=== PATIENT | female | born 1995 | race Caucasian/White ===

== ENCOUNTER 2021-08-30 11:29 | Outpatient (CLI) | payer OTHER, SELFPAY | END 2021-08-30 11:30 | disposition home or self-care (01) | LOC: FRMREF 11:31 | PROVIDERS: Visit Provider Physician Assistant | DX: Z34.93 Encounter for supervision of normal pregnancy, unspecified, third trimester (principal) | CPT/HCPCS: 87086 ==

== ENCOUNTER 2021-10-10 10:17 | Outpatient (CLI) | payer OTHER, SELFPAY ==
[2021-10-10 14:28] LABS: TSH With Reflex to FT4* 0.016 uIU/mL (0.270-4.200)
[2021-10-11 08:31] LABS: Free T4 Free Thyroxine* 1.43 ng/dL (0.70-1.85)
== END 2021-10-10 10:18 | disposition home or self-care (01) ==
LOC: FRMREF 10:18
PROVIDERS: Visit Provider Registered Nurse
DX: E03.9 Hypothyroidism, unspecified (principal); D64.9 Anemia, unspecified; Z39.2 Encounter for routine postpartum follow-up
CPT/HCPCS: 84439; 84443; 85018

== ENCOUNTER 2022-01-01 15:24 | Outpatient (CLI) | payer OTHER, SELFPAY | END 2022-01-01 15:25 | disposition home or self-care (01) | PROVIDERS: Visit Provider Registered Nurse | DX: E03.9 Hypothyroidism, unspecified (principal) | CPT/HCPCS: 84443 ==

== ENCOUNTER 2022-04-16 16:01 | Outpatient (CLI) | payer OTHER, SELFPAY | END 2022-04-16 16:02 | disposition home or self-care (01) | PROVIDERS: Visit Provider Registered Nurse | DX: R10.2 Pelvic and perineal pain (principal); N89.8 Other specified noninflammatory disorders of vagina; N39.0 Urinary tract infection, site not specified | CPT/HCPCS: 87086; 87186 ==

== ENCOUNTER 2023-02-03 14:49 | Outpatient (CLI) | payer OTHER, SELFPAY ==
--- NOTE | 2023-02-03 15:00 | CRLHL7_ITS ---
For Patients: As a result of the Cures Act, medical imaging exams and procedure reports are released immediately into your electronic medical record. You may view this report before your referring provider. If you have questions, please contact your health care provider. INDICATION: First trimester scan, establish dates. COMPARISON: None. TECHNIQUE: Real-time ingram-scale imaging of the pelvis was performed. FINDINGS: Sonographic imaging demonstrates a single living intrauterine gestation. The embryo demonstrates a regular cardiac rate measuring 173 beats per minute. The embryo`s crown-rump length measurement of 2.2 cm corresponds to a gestational age of 8 weeks 6 days with a sonographic due date of 09/09/2023. There is a normal-appearing yolk sac. There are no gross abnormalities noted within the embryo at this early state of development. The gestational sac has a normal appearance. There is a 2.6 x 2.7 x 0.7 cm perigestational hemorrhage. The amount of fluid within the sac appears appropriate for gestational age. The cervix is closed. The myometrium appears normal. The ovaries are of normal size. There are no suspicious fluid collections noted in the cul-de-sac. IMPRESSION: Single living intrauterine with sonographic gestational age 8 weeks 6 days and sonographic due date 09/09/2023. Subchorionic hemorrhage measuring 2.6 x 2.7 x 0.7 cm. Dictated by Sher eRyes MD @ 02/05/2023 10:25:54 AM (Electronically Signed)
== END 2023-02-03 14:50 | disposition home or self-care (01) ==
LOC: US 14:49
PROVIDERS: Visit Provider Registered Nurse
DX: Z34.91 Encounter for supervision of normal pregnancy, unspecified, first trimester (principal); O20.9 Hemorrhage in early pregnancy, unspecified; Z3A.08 8 weeks gestation of pregnancy
CPT/HCPCS: 76817; 84439; 84443; 86592; 86703; 86704; 86706; 86762; 86787; 86803; 86850; 86900; 86901; 87086; 87186; 87340; 87491; 87591

== ENCOUNTER 2023-02-03 16:54 | Outpatient (CLI) | payer OTHER, SELFPAY | END 2023-02-03 16:55 | disposition home or self-care (01) | LOC: FRMREF 16:58 | PROVIDERS: Visit Provider Registered Nurse | DX: Z34.91 Encounter for supervision of normal pregnancy, unspecified, first trimester (principal) | CPT/HCPCS: 84439; 84443; 86592; 86703; 86704; 86706; 86762; 86787; 86803; 86850; 86900; 86901; 87086; 87186; 87340; 87491; 87591 ==

== ENCOUNTER 2023-03-31 15:29 | Outpatient (CLI) | payer OTHER, SELFPAY | END 2023-03-31 15:30 | disposition home or self-care (01) | LOC: NFLDREF 15:29 | PROVIDERS: Visit Provider Obstetrics & Gynecology | DX: E03.9 Hypothyroidism, unspecified (principal) | CPT/HCPCS: 84443 ==

== ENCOUNTER 2023-04-24 13:50 | Outpatient (CLI) | payer OTHER, SELFPAY ==
--- NOTE | 2023-04-24 14:00 | US_ITS ---
Patient: ANDREA LINO Facility:?[facility] Patient ID:?[id number] Site Patient ID:?[id number]. Site :?[id number] Study:?US-OB Pelvis OB ANATOMY-04/24/2023 2:57:32 PM Ordering Physician:?PREM ÁLVAREZ M.D. Final Report: INDICATION: survey. TECHNIQUE: Conventional transabdominal two-dimensional grayscale ultrasound examination. COMPARISON: None. FINDINGS: There is a living fetus with gestational age of 20 weeks 1 day LMP and 20 weeks 3 days by today`s measurements. EDC based on LMP is 09/10/2023. BPD: 4.7 cm, 20 weeks 1 day Head circumference: 17.9 cm, 20 weeks 3 days Abdominal circumference: 14.8 cm, 20 weeks 1 day Femur length: 3.3 cm, 20 weeks 2 days The weight is estimated at 340 grams, the 50th percentile. The heart rate is measured at 141 beats per minute and the rhythm appears regular. The head and spine are grossly intact. No gross facial abnormality is evident. The upper lip is intact. Four cardiac chambers are demonstrated. The heart and stomach appear to be on the same side. The diaphragm is intact. Two kidneys and a bladder are demonstrated. The cord insertion is normal and three cord vessels are noted. Four extremities are demonstrated. The amniotic fluid volume is within normal limits. The placenta is anterior with no evidence of previa. The cervical length is normal at 4.4 cm. IMPRESSION: 1. Living fetus with gestational age of 20 weeks 1 day LMP and 20 weeks 3 days by today`s measurements. EDC based on LMP is 09/10/2023. 2. No anomaly evident. Dictated by Ap Haynes MD @ 04/25/2023 6:29:24 AM Signed by:?Ap Haynes MD @04/25/2023 6:29:24 AM (Electronic Signature)
== END 2023-04-24 13:51 | disposition home or self-care (01) ==
LOC: US 13:51
PROVIDERS: Visit Provider Obstetrics & Gynecology
DX: Z34.92 Encounter for supervision of normal pregnancy, unspecified, second trimester (principal); Z3A.20 20 weeks gestation of pregnancy
CPT/HCPCS: 76805

== ENCOUNTER 2023-06-18 15:23 | Outpatient (CLI) | payer OTHER, SELFPAY | END 2023-06-18 15:24 | disposition home or self-care (01) | LOC: NFLDREF 06-19 07:52 | PROVIDERS: PCP Family Medicine; Visit Provider Registered Nurse | DX: E03.9 Hypothyroidism, unspecified (principal); Z34.93 Encounter for supervision of normal pregnancy, unspecified, third trimester | CPT/HCPCS: 84439; 84443; 86592 ==

== ENCOUNTER 2023-08-06 14:03 | Outpatient (CLI) | payer OTHER, SELFPAY | END 2023-08-06 14:04 | disposition home or self-care (01) | PROVIDERS: PCP Family Medicine; Visit Provider Registered Nurse | DX: Z34.93 Encounter for supervision of normal pregnancy, unspecified, third trimester (principal); R35.0 Frequency of micturition; Z13.0 Encounter for screening for diseases of the blood and blood-forming organs and certain disorders involving the immune mechanism; Z13.1 Encounter for screening for diabetes mellitus; Z13.29 Encounter for screening for other suspected endocrine disorder; Z3A.35 35 weeks gestation of pregnancy | CPT/HCPCS: 82947; 84443; 86618; 87086 ==

== ENCOUNTER 2023-08-14 14:10 | Outpatient (CLI) | payer OTHER, SELFPAY ==
[2023-08-15 18:10] LABS: Strep B DNA Probe Negative (Negative)
[2023-08-15 21:42] LABS: Strep B Susceptibility Needed? No
== END 2023-08-14 14:11 | disposition home or self-care (01) ==
PROVIDERS: PCP Family Medicine; Visit Provider Obstetrics & Gynecology
DX: Z34.93 Encounter for supervision of normal pregnancy, unspecified, third trimester (principal); Z3A.36 36 weeks gestation of pregnancy
CPT/HCPCS: 87081; 87086; 87653

== ENCOUNTER 2023-08-15 15:10 | Inpatient (IN) | payer OTHER, SELFPAY ==
[2023-08-15] VITALS (22 sets, daily range): BP systolic 110–132; BP diastolic 61–110; PULSE 57–74; RESP 15–17; TEMP 36.3–37; O2SAT 97–100; BMI 26.5
[2023-08-15] MEDS: PANTOPRAZOLE SODIUM 40 MG INJ IVP (14:12)
[2023-08-15] MEDS: LACTATED RINGERS 1000 ML 1,000 ML 999 ML IV (14:12)
[2023-08-15 14:56] LABS: Basophils Absolute Auto 0.01 K/uL (0.00-0.30); Basophils Percent Auto 0.1 % (0.0-3.0); Eosinophils Absolute Auto 0.07 K/uL (0.00-0.50); Eosinophils Percent Auto 0.9 % (0.0-7.0); Hematocrit 36.9 % (33.0-51.0); Hemoglobin* 12.8 gm/dL (12.0-16.0); Immature Granulocytes Abs Auto 0.09 K/uL (0.00-0.30); Immature Granulocytes Pct Auto 1.1 %; Lymphocytes Absolute Auto 2.71 K/uL (0.90-2.90); Lymphocytes Percent Auto 33.6 % (20-44); Mean Corpuscular HGB Conc 35 gm/dL (32-36); Mean Corpuscular Hemoglobin 33 pg (26-34); Mean Corpuscular Volume 95 fL (80-100); Monocytes Percent Auto 6.2 % (0.0-11.0); Neutrophils Absolute Auto 4.69 K/uL (1.7-7.0); Neutrophils Percent Auto 58.1 % (42.0-72.0); Platelet Count* 239 K/uL (140-440); RDW Coefficient of Variation % 12.9 % (11.5-15.5); White Blood Count* 8.07 K/uL (4.50-11.00)
[2023-08-15 15:00] LABS: Slide Review Reflex No
--- NOTE | 2023-08-15 15:17 | P.LDBA_ITS ---
Subjective History of Present Illness Date Seen: 08/15/23 Narrative: Patient is being admitted to Labor and Delivery for early labor. She is a 27 year old -0-0-1 woman at 36 weeks, 2 days gestation. She presented to Center today with complaint of epigastric discomfort. She was also noticing occasional contractions. She does have some heartburn, and she was treated with IV omeprazole. Her cervical exam yesterday showed 3 cm dilation. Upon presentation here, her cervix was 4 / 80 / -1. Repeat exam just now was 4.5 / 90 / -1. She is beginning to feel stronger contractions. Her full history and physical was dictated by Dr. Ludwig on 08/14/23. Please see this for details. Specific Issues/Plans # History of placental abruption during second stage labor, leading to an emergent July 2021. * Considering repeat vs TOLAC * TOLAC consent given 03/03/23 * Desires repeat delivery-scheduled on 09/04/2023 (39 1/7 weeks gestation) # Depression and anxiety. Restarting Wellbutrin at 1st OB visit 150 mg daily. # Hypothyroidism. Patient electively increased her levothyroxine with her positive test. 100 mcg twice weekly and 50 mcg 5 times weekly. Check TSH and free T4 each trimester. * 02/03/2023: TSH 2.250, free T4 1.37. Changed to levothyroxine 125 mg tabs, 1/2 tab daily (62.5 mcg daily) * Repeat TSH 03/31/23: 1.940. Continue current dose. * 06/17: TSH 1.410 # UTI (symptomatic) at first OB. Macrobid BID x7 days. * Currently on Macrobid for UTI at time of admit # Father of baby's sister with anencephaly. * Declines AFP # Nonimmune to hepatitis-B # Tick bites 2-3 weeks ago. Lyme test: negative. Consider repeat in 4 weeks. # Reports of tachycardia when consuming large amount of sugar at 35 weeks. TSH: normal, hgb: normal, glucose: normal, EKG: normal sinus rythm. Flu: Recommended. Declines Covid: Recommended. Not vaccinated, declines. Reviewed risks of COVID infection during Tdap:07/02/23 DUE FOR PAP SMEAR PP. OB - Problem Based A/P Additional Plan (1) History of section complicating : Status: Acute (2) labor: Status: Acute Plan labor at 36 2/7 weeks in a patient with history of emergent for placental abruption. Patient prefers repeat . Consent form was reviewed with and signed by patient yesterday with Dr. Cooper paez. We again signed a consent form today. Cefazolin and azithromycin for pre-op prophylaxis. Peds to be present at delivery given labor. Delivery/Labor/Induction Plan Plan: Section OB Exam Physical Exam Vital signs: Pulse BP Pulse Ox 67 122/80 100 08/15/23 13:20 08/15/23 13:20 08/15/23 13:20 Narrative: Physical exam: General: No acute distress Psych: Alert and oriented x3, full affect HEENT: Normocephalic, atraumatic Neck: No cervical adenopathy, no thyromegaly Heart: Regular rate and rhythm, no murmur rub or gallop Lungs: Clear to auscultation bilaterally Abdomen: Uterus is soft. Soft, nontender, gravid, cephalic lie Lower extremities: No edema or erythema Pelvic exam: Cervical exam as above NST: Baseline 130 / accelerations present / no decelerations / moderate variability. Reactive, reassuring NST.
[2023-08-15] MEDS: LACTATED RINGERS 1000 ML 1,000 ML 125 ML IV ×2 (15:20→18:40)
[2023-08-15] MEDS: AZITHROMYCIN 500 MG in 0.9 % SODIUM CHLORIDE 250 ml 250 ML 255 MG IVPB (15:36)
[2023-08-15] MEDS: CEFAZOLIN 2 GM INJ IVP (16:06)
--- NOTE | 2023-08-15 17:43 | P.OBPRC_ITS ---
Procedure Date of procedure: 08/15/23 Procedure Done: Global Will [facility] bill your pro fee for this procedure?: Yes Procedure Description: PREOPERATIVE DIAGNOSIS: Labor at 36 weeks, 2 days gestation Previous delivery, desires repeat POSTOPERATIVE DIAGNOSIS: Same PROCEDURE: Repeat low-transverse section SURGEON: Kaia Huang MD ANESTHESIA: Spinal IV FLUIDS: 900 mL QBL: 748 mL FINDINGS: 1. Female infant, cephalic OA presentation, Apgars of 8 and 9, weight pending at the time of this dictation 2. Normal appearance to uterus, bilateral tubes and ovaries. COMPLICATIONS: None PROCEDURE IN DETAIL: Patient was taken to the operating room with IV running. She received cefazolin and azithromycin in preoperative prophylaxis. Spinal anesthesia was administered. Meade catheter was inserted. She was prepped and draped in the usual sterile fashion. Anesthesia was tested and found to be adequate. A low-transverse skin incision was made with a scalpel and carried through to the underlying layer of fascia with the scalpel. The subcutaneous fat was dissected off the underlying fascia with Bovie. The fascia was nicked in the midline with a scalpel, and this incision was extended laterally with scissors. The rectus muscles were in the midline. Given the scarring noted at this layer, the rectus sheath was dissected off the underlying rectus muscles sharply. The peritoneum was tented up with hemostats and entered sharply. Bovie was used to widen this opening laterally. Temo O retractor was inserted and tightened down, providing excellent visualization of the lower uterine segment. The bladder reflection was found to be well below the planned site for hysterotomy. Low-transverse uterine incision was made with a scalpel. Incision was widened bluntly. The infant's head was grasped through the hysterotomy and delivered with the help of fundal pressure. The remainder of the body delivered without incident. Cord was clamped and cut after 30 seconds. was handed off to attending nurses. The placenta was delivered with gentle traction on the cord. The uterus was exteriorized and cleaned of all clots and debris with the dry lap pad. The hysterotomy was reapproximated with 0 Vicryl in a running, locked fashion. Second layer of the same suture was required through the midportion of the incision to obtain excellent hemostasis. The adnexa were examined and noted to be normal in appearance. The cul-de-sac and gutters were cleansed with dampened laparotomy sponge, removing any further clots and debris. The uterus was returned to the abdomen. The Temo O retra ctor was removed. The hysterotomy was reexamined and found to be hemostatic. The peritoneum was reapproximated with 2 0 Vicryl in a running fashion. The rectus muscles were examined and there was initially some diffuse oozing but no heavy bleeding. This was addressed with electrocautery. The fascia was reapproximated with 0 Vicryl in a running fashion. Subcutaneous fat was irrigated and Bovie used on oozing vessels. The subcutaneous fat was reapproximated with 2 0 plain gut suture in an interrupted fashion. The skin was closed with a subcuticular stitch of 4-0 Monocryl. Surgical glue was applied above this. Patient tolerated procedure well was taken to recovery area in stable condition. Pathology: specimen obtained, sent to pathology Surgery Debrief Performed: Yes Surgery Debrief Comment: I have verbally confirmed by request to send placenta to pathology Y[place]key total score - 1 minute: 8 total score - 5 minute: 9
--- NOTE | 2023-08-15 18:12 | P.ANES_ITS ---
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
--- NOTE | 2023-08-15 18:12 | W.PM.NB ---
Nerve Block Nerve Block Time Seen by Provider: 18:00 Date Seen: 08/15/23 Type of block requested by surgeon for post-operative analgesia: TAP Side: bilateral Time out performed: Yes Verification of patient name: Yes Verification of date of : Yes Site marking: site marked Name of person performing procedure: olivia Continuous monitoring Was continuous monitoring of O2 sat, B/P, microstrategy architect developer, recorded every 15 minutes?: Yes Procedure Checklist: sterile prep, needles and gloves Ultrasound guided. Images saved: Yes Medications given in 5ml increments after negative aspiration: Marcaine %: 0.25 mL: 30 and Exparel mL: 10 Patient tolerated procedure well: Yes Block Charges Block Charge (with Pro Fee): TAP Bilateral Use of Ultrasound Machine for Block: Yes- US Guidance/pain block
[2023-08-15] MEDS: KETOROLAC 30 MG/ML inj IVP (23:31)
[2023-08-16] VITALS (15 sets, daily range): BP systolic 105–115; BP diastolic 54–71; PULSE 64–71; RESP 16; TEMP 36.6–36.9; O2SAT 97–100
[2023-08-16] MEDS: KETOROLAC 30 MG/ML inj IVP ×3 (05:42→18:14)
[2023-08-16] MEDS: LEVOTHYROXINE 125 MCG TABLET 62.5 MCG PO (05:42)
[2023-08-16 07:24] LABS: Hemoglobin* 10.8 gm/dL (12.0-16.0)
--- NOTE | 2023-08-16 08:38 | P.OBPN_ITS ---
OB - PN:Subj Subjective Date Seen: 08/16/23 Interval history: Davida is a 27-year-old G2 now P 1-1-0-2 woman who is status post repeat on 08/15/2019 for at 36 weeks, 2 days gestation in the setting of pre term labor. OB PROBLEM LIST # History of placental abruption during second stage labor, leading to an emergent July 2021. * Considering repeat vs TOLAC * TOLAC consent given 03/03/23 * Desires repeat delivery-scheduled on 09/04/2023 (39 1/7 weeks gestation) # Depression and anxiety. Restarting Wellbutrin at 1st OB visit 150 mg daily. # Hypothyroidism. Patient electively increased her levothyroxine with her positive test. 100 mcg twice weekly and 50 mcg 5 times weekly. Check TSH and free T4 each trimester. * 02/03/2023: TSH 2.250, free T4 1.37. Changed to levothyroxine 125 mg tabs, 1/2 tab daily (62.5 mcg daily) * Repeat TSH 03/31/23: 1.940. Continue current dose. * 06/17: TSH 1.410 # UTI (symptomatic) at first OB. Macrobid BID x7 days. * On Macrobid for UTI at time of admit, but preliminary urine culture results show normal growth. Macrobid discontinued. # Father of baby's sister with anencephaly. * Declines AFP # Nonimmune to hepatitis-B # Tick bites 2-3 weeks ago. Lyme test: negative. Consider repeat in 4 weeks. # Reports of tachycardia when consuming large amount of sugar at 35 weeks. TSH: normal, hgb: normal, glucose: normal, EKG: normal sinus rythm. Narrative: Davida is doing well today. She has a good appetite, is eating lunch, has passed flatus. Pain is well managed. She denies any heavy bleeding. She is now voiding normally. She has had a breast reduction, and is bottle feeding. OB - PN: Obj Exam Physical Exam: Vital signs: Temp Pulse Resp BP Pulse Ox O2 Del Method 97.8 F 65 16 115/68 97 Room Air 08/16/23 05:55 08/16/23 05:55 08/16/23 05:58 08/16/23 05:55 08/16/23 05:55 08/16/23 05:55 1 blood pressure of 129/110 at 7:47 p.m. on 08/15/2023, with repeat 16 minutes later 129/86 Narrative: General: Pleasant, no acute distress Heart: Regular rate and rhythm, no murmur or gallop Lungs: Clear to auscultation bilaterally Abdomen: NABS. Soft, nontender, fundus well below umbilicus, dressing clean / dry / intact Lower extremities: No edema or erythema Urinary Catheter Management: Urethral: Cath placed during this visit: yes Urethral indwelling: No Insertion date: 08/15/23 Insertion time: 16:30 OB - PN: Obj Data Labs Labs: Laboratory Results - last 24 hr 08/15/23 08/16/23 14:08 07:04 WBC 8.07 RBC 3.90 L Hgb 12.8 10.8 L Hct 36.9 MCV 95 MCH 33 MCHC 35 RDW Coeff of Vadim 12.9 Plt Count 239 Neut % (Auto) 58.1 Lymph % (Auto) 33.6 [place] % (Auto) 6.2 Eos % (Auto) 0.9 Baso % (Auto) 0.1 Neut # (Auto) 4.69 Lymph # (Auto) 2.71 [place] # (Auto) 0.50 Eos # (Auto) 0.07 Baso # (Auto) 0.01 Abs Immat Gran (auto) 0.09 Imm/Tot Granulo (auto) 1.1 Blood Type O Positive Antibody Screen NEGATIVE Urine culture from 08/14/2019 for shows preliminary results of no growth OB - PN: A/P Delivery Assessment and Plan (1) Status post repeat low transverse section: Status: Acute Assessment and Plan: appropriate post-op course (2) Anemia associated with acute blood loss: Status: Acute Assessment and Plan: Hb 10.8. Begin ferrous sulfate q.o.d.. Plan day: 1 Plan: routine care
[2023-08-16] MEDS: buPROPion XL 150 MG TABLET PO (17:17)
[2023-08-16] MEDS: DOCUSATE SODIUM 100 MG CAPSULE PO (18:14)
[2023-08-16] MEDS: FERROUS SULFATE 325 MG TABLET PO (18:14)
[2023-08-17] MEDS: KETOROLAC 30 MG/ML inj IVP (00:27)
[2023-08-17] MEDS: MAGNESIUM HYDROXIDE 30 ML ORAL.SUSP PO ×2 (00:39→08:04)
[2023-08-17 05:01] VITALS: BP 103/68; PULSE 69; RESP 16; TEMP 36.6
[2023-08-17] MEDS: LEVOTHYROXINE 125 MCG TABLET 62.5 MCG PO (07:39)
[2023-08-17 07:50] VITALS: BP 106/71; PULSE 76; RESP 16; TEMP 36.7; O2SAT 99
[2023-08-17] MEDS: DOCUSATE SODIUM 100 MG CAPSULE PO (08:03)
[2023-08-17] MEDS: IBUPROFEN 600 MG TABLET PO (08:04)
--- NOTE | 2023-08-17 08:18 | PM.OBDSVD1 ---
DS: Providers Provider Date Seen: 08/17/23 Date of admission: 08/15/23 15:10 Primary care physician: Vaishali Brock MD Admitting Clinician: Kaia Huang MD Attending Physician on discharge: Cookie Torres CNM DS: Diagnosis Discharge Diagnosis (1) care and examination immediately after delivery: Status: Acute (2) Status post repeat low transverse section: Status: Acute (3) Anemia associated with acute blood loss: Status: Acute Exam Narrative: Exam Narrative: GENERAL APPEARANCE:? normal affect, alert, no distress MOOD:? appropriate CHEST:? clear to auscultation HEART:? regular rate and rhythm ABDOMEN:? soft, non-tender the uterine fundus is 1 below Umbilicus, Midline and is appropriate for the stage of recovery. EXTREMITIES:? normal and n edema INCISION: Healing well, no surrounding erythema, abnormal induration or discharge Const: Vital Signs, click to edit/add: Vital Signs - 24 hr 08/16/23 09:00 08/16/23 12:00 08/16/23 17:08 Temperature 98.3 F 98.5 F Pulse Rate [Pulse Oximeter] 64 71 Respiratory Rate 16 16 16 Blood Pressure [Le ft Arm] Blood Pressure [Ri ght Arm] 108/54 L 108/65 Pulse Oximetry 98 100 Oxygen Delivery Me thod Room Air Room Air 08/16/23 17:13 08/16/23 17:18 08/16/23 21:03 Temperature 98.2 F Pulse Rate [Pulse Oximeter] 68 Respiratory Rate 16 16 16 Blood Pressure [Le ft Arm] 106/61 Blood Pressure [Ri ght Arm] Pulse Oximetry Oxygen Delivery Me thod Room Air 08/17/23 05:01 Temperature 97.9 F Pulse Rate [Pulse Oximeter] 69 Respiratory Rate 16 Blood Pressure [Le ft Arm] Blood Pressure [Ri ght Arm] 103/68 Pulse Oximetry Oxygen Delivery Me thod Documenting provider has reviewed patient's vital signs: yes OB - DS: Summary Hospital Course Hospital Course: Davida is a 27 y.o. G 2 P 2 who was admitted to [facility] for spontaneous onset of labor with bleeding, . ?She had a repeat section that was uncomplicated. The patient feels well. ?The pain is well controlled with current medications. ?She has no new complaints. ?She is formula feeding, she does not plan to breastfeed. the patient has done well.? Vitals have been stable.? She has remained afebrile.? Has a good appetite, is tolerating a general diet. ?She is voiding without difficulty.? She is passing gas and has not had a bowel movement.? She is ambulating and denies any dizziness.? Has small amount of rubra lochia. She is planning condoms for prevention. Problems: Anemia due to acute blood loss plan: Discharge home with baby. Follow up in 2 weeks and 6 weeks. , may see if needed Hgb 10.8. Iron supplement ordered orally every other day Peripartum Data delivery method: Repeat Section Procedures: Procedures Operation Date: 08/15/23 16:00 Actual Procedure Side Surgeon p Repeat Section Kaia Huang MD Gender: Female Discharge Plan: Home Status at Discharge Functional status at discharge: independent ambulation Overall status at discharge: patient is progressing back to baseline Time Spent with Patient Time attestation: Total time spent providing and/or coordinating discharge services: Discharge Plan Discharge Disposition: Home, Self-Care Date of Admission: 08/15/23 15:10 Attending Provider on Discharge: Cookie Torres Primary Care Provider: Vaishali Brock Condition: Stable Anticipated Discharge Date/Time: 08/17/23 12:00 Discharge Medications: New ferrous sulfate 325 mg (65 mg iron) Tablet 325 mg PO Q48H Qty: 90 0RF docusate sodium 100 mg Capsule 100 mg PO DAILY Qty: 90 0RF ibuprofen 600 mg Tablet 600 mg PO Q6H PRN (Reason: Pain) Qty: 60 0RF oxycodone 5 mg Tablet 5 - 10 mg PO Q4H PRN (Reason: Pain) Qty: 10 0RF levothyroxine 50 mcg tablet 50 mcg PO DAILY Qty: 60 1RF acetaminophen 500 mg Tablet 1,000 mg PO Q6H PRN (Reason: Pain) Qty: 0 0RF Continued bupropion HCl 150 mg tablet extended release 24 hr 150 mg PO QAM Qty: 90 3RF omeprazole 10 mg capsule,delayed release(DR/EC) 10 mg PO ONCE nitrofurantoin monohyd/m-cryst [Macrobid] 100 mg capsule 100 mg PO BID 5 Days Qty: 10 0RF Rx Instructions: must administer with a meal/food Discontinued levothyroxine 125 mcg tablet 62.5 mcg PO QDAY Qty: 30 1RF Discharge Orders: Discharge Order (Routine); Ordered 08/17/23 Ordered By: Cookie Torres Patient Education: OB /Bottle Feeding, OB Over the Counter Medication Information Additional Instructions: Discharge instructions were reviewed with the patient including signs and symptoms of infection and home going medications Lifting Restrictions: 20 pounds for 6 weeks No not submerge incision under water X 2 weeks? Nothing vaginally for 6 weeks: no tampons or intercourse Do not drive while taking narcotic pain medication(s) Off Work or School for 8 weeks 2-week visit: incision check, discuss infant feeding concerns, review control options and screen for anxiety/depression. 6-week visit for an annual exam. consultation services are available to all mothers and babies for the first year after delivery.? To make an appointment, please call [phone]. Activity Level: Activity as Tolerated Discharge Diet: Regular Follow Up Appointments: [facility] [Provider Group] Forms: MyHealth Info Instructions
[2023-08-17] MEDS: ACETAMINOPHEN 500 MG TABLET 1000 MG PO (11:42)
[2023-08-18 18:34] LABS: Rapid Plasma Reagin (RPR) Non Reactive (Non Reactive)
== END 2023-08-17 12:01 | disposition home or self-care (01) | DRG 787 ==
LOC: OB OUT 15:10 → OB 15:10
PROVIDERS: Admitting Provider Obstetrics & Gynecology; PCP Family Medicine; Visit Provider Obstetrics & Gynecology
PROC: 10D00Z1 Extraction of Products of Conception, Low, Open Approach (ICD-10-PCS; CPT 59514; principal; 2023-08-15 15:45)
DX: O60.13X0 Preterm labor second trimester with preterm delivery third trimester, not applicable or unspecified (principal); D62 Acute posthemorrhagic anemia; O90.81 Anemia of the puerperium; G89.18 Other acute postprocedural pain; O34.211 Maternal care for low transverse scar from previous cesarean delivery; O99.284 Endocrine, nutritional and metabolic diseases complicating childbirth; E03.9 Hypothyroidism, unspecified; O99.344 Other mental disorders complicating childbirth; F32.A Depression, unspecified; F41.9 Anxiety disorder, unspecified; Z3A.36 36 weeks gestation of pregnancy; Z37.0 Single live birth
CPT/HCPCS: 01961; 36415; 51798; 64488; 76942; 85018; 85025; 86592; 86850; 86900; 86901; 88307; 99140; A9270; C9113; C9290; J0456; J0665; J0690; J1100; J1885; J2274; J2371; J2405; J2590; J7050; J7120

== ENCOUNTER 2023-09-28 10:07 | Outpatient (CLI) | payer OTHER, SELFPAY | END 2023-09-28 10:08 | disposition home or self-care (01) | PROVIDERS: PCP Family Medicine; Visit Provider Physician Assistant | DX: Z39.2 Encounter for routine postpartum follow-up (principal); E03.9 Hypothyroidism, unspecified | CPT/HCPCS: 84443 ==

== ENCOUNTER 2023-10-07 09:00 | Outpatient (CLI) | payer OTHER, SELFPAY | END 2023-10-07 09:01 | disposition home or self-care (01) | LOC: NFLDREF 10-13 05:47 | PROVIDERS: PCP Family Medicine; Referring Provider Family Medicine; Visit Provider Physician Assistant | DX: B83.9 Helminthiasis, unspecified (principal) | CPT/HCPCS: 87177; 87209 ==

== ENCOUNTER 2025-01-24 08:54 | Outpatient (CLI) | payer OTHER, SELFPAY ==
--- NOTE | 2025-01-24 09:15 | CRLHL7_ITS ---
For Patients: As a result of the Century Cures Act, medical imaging exams and procedure reports are released immediately into your electronic medical record. You may view this report before your referring provider. If you have questions, please contact your health care provider. INDICATION: Displacement of IUD COMPARISON: None. TECHNIQUE: 2D ingram-scale and color Doppler images were acquired of the pelvis using a transabdominal approach. Patient declined transvaginal imaging. FINDINGS: Sonographic images demonstrate a normal size and smooth outer contour of the uterus. Uterus measures 10.3 cm in length by 6.1 cm in AP diameter by 8.1 cm in transverse dimension. The myometrium has a normal uniform echotexture. The endometrial lining appears normal and measures 5 mm in thickness. IUD is present in good position within the endometrial canal. The right ovary measures 4.2 x 3.2 x 3.6 cm in size and the left ovary measures 5.6 x 1.3 x 2.6 cm. The ovaries demonstrate normal arterial and venous blood flow on color Doppler analysis. There are no suspicious fluid collections within the cul-de-sac. Simple right ovarian cyst is present which measures 3.4 x 2.7 x 2.4 cm. IMPRESSION: Normal position of an IUD within the endometrial canal. Dictated by Sher Reyes MD @ 01/24/2025 1:10:29 PM (Electronically Signed)
== END 2025-01-24 08:55 | disposition home or self-care (01) ==
LOC: US 08:55
PROVIDERS: PCP Family Medicine; Visit Provider Registered Nurse
DX: T83.32XA Displacement of intrauterine contraceptive device, initial encounter (principal)
CPT/HCPCS: 76830; 76856